=== PATIENT | male | born 2000 | race Caucasian/White ===

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

== ENCOUNTER 2021-01-03 10:59 | Emergency (ER) | payer BC, OTHER ==
[~2021-01-03 10:59] MED LIST changes: +IBUPROFEN400 MG PO; +ZOFRAN4 MG PO
[2021-01-03 11:27] LABS: HEMOGLOBIN 15.3 gm/dl (14.0-17.5); RED BLOOD COUNT 4.94 M/UL (4.20-5.50)
[2021-01-03 11:49] LABS: BUN/CREATININE RATIO 10 (0-10)
== END 2021-01-03 12:45 | disposition home or self-care (01) ==
LOC: ER1 10:59
DX: R07.89 Other chest pain (principal); F41.9 Anxiety disorder, unspecified
CPT/HCPCS: 71045; 80053; 82550; 82553; 83874; 84484; 85025; 93005; 99285

== ENCOUNTER → 2021-01-22 | Outpatient (CLI) | payer OTHER | LOC: HEART 5 14:00 | DX: R55 Syncope and collapse (principal) | CPT/HCPCS: 93306 ==

== ENCOUNTER 2021-12-15 20:14 | Emergency (ER) | payer OTHER ==
[2021-12-15 21:25] LABS: HEMOGLOBIN 16.9 gm/dl (14.0-17.5); RED BLOOD COUNT 5.56 M/UL (4.20-5.50); WHITE BLOOD COUNT 7.3 K/UL (4.5-11.0)
[2021-12-15 21:31] LABS: BUN/CREATININE RATIO 11 (0-10)
[2021-12-16] MEDS ORDERED: ZOFRAN 4 MG TAB4 MG PO (00:03)
[2021-12-16] MEDS ORDERED: MECLIZINE HCL12.5 MG PO (00:03)
== END 2021-12-16 00:14 | disposition home or self-care (01) ==
LOC: ER1 20:14
PROVIDERS: Nurse Practitioner
DX: R42 Dizziness and giddiness (principal); I10 Essential (primary) hypertension; Z20.822 Contact with and (suspected) exposure to COVID-19
CPT/HCPCS: 80053; 80307; 81001; 82140; 85025; 99284; U0002